=== PATIENT | male | born 1995 | race Caucasian/White ===

== ENCOUNTER 2016-04-14 18:31 | Emergency (ER) | payer BC, OTHER ==
[2016-04-14 21:00] LABS: Hematocrit 44 % (42-52); Hemoglobin 14.6 g/dl (14.0-18.0); Mean Corpuscular HGB Conc 34 g/dl (31-36); Mean Corpuscular Hemoglobin 29 pg (27-31); Mean Corpuscular Volume 86 fL (80-94); Mean Platelet Volume 9 um3 (7.4-10.4); Red Blood Count 5.06 10^6/ul (4.0-5.4); Red Cell Distribution Width 13 % (10.5-15); White Blood Count 9.3 10^3/ul (3.5-10.8)
[2016-04-14 21:17] LABS: Albumin 4.4 g/dL (3.2-5.2); BUN/Creatinine Ratio 15.6 (8-20); Calcium 9.2 mg/dL (8.6-10.3); EGFR African American 134.5 (>60); EGFR Non-African American 104.6 (>60); Globulin 2.5 g/dL (2-4); Magnesium 2.2 mg/dL (1.9-2.7); Potassium 3.8 mmol/L (3.5-5.0); Total Bilirubin 1.7 mg/dL (0.2-1.0); Total Protein 6.9 g/dL (6.4-8.9)
[2016-04-14 21:47] LABS: TSH (Thyroid Stimulating Horm) 1.54 mcIU/mL (0.34-5.60)
[2016-04-14 22:10] VITALS: BP 142/87
--- NOTE | 2016-04-14 23:11 | ED ---
Aye Infante Erika, scribed for Luciano Wen MD on 04/14/16 at 2116 . Palpitations / Dysrhythmia - HPI Summary HPI Summary: Patient is a 21-year-old male presenting to the ED with a CC of palpitations starting around 18:00 today. Pt reports that he gradually developed palpitations and SOB first, which lasted minutes. He then gradually developed chest pain, dizziness, and diaphoresis, which lasted about 30 minutes. Pt was sitting down eating food and watching TV when the symptoms began. Symptoms have since fully resolved slowly. Pt reports he took Excedrin earlier today, and states he does not normally use caffeine. He denies PMSHx. He denies FHx sudden cardiac , cardiac disease, and arrhythmias. Pt lightly smokes, and does not use illicit drugs. Pt does not have a PCP. - History of Current Complaint Chief Complaint: EDDysrhythmPalp Time Seen by Provider: 04/14/16 19:22 Hx Obtained From: Patient Onset/Duration: Gradual Onset, Lasting Minutes, Resolved Timing: Constant Severity Initially: Mild Severity Currently: None Character: Fluttering Aggravating: Nothing Associated Signs & Symptoms: Lightheadedness, Chest Pain, Shortness of Breath, Diaphoresis - Allergy/Home Medications Allergies/Adverse Reactions: Allergies Allergy/AdvReac Type Severity Reaction Status Date / Time Penicillins Allergy Hives Verified 06/14/13 16:31 PMH/Surg Hx/FS Hx/Imm Hx Endocrine/Hematology History: Denies: Hx Diabetes, Hx Thyroid Disease Cardiovascular History: Denies: Hx Hypertension Respiratory History: Denies: Hx Asthma, Hx Chronic Obstructive Pulmonary Disease (COPD) GI History: Denies: Hx Ulcer - Surgical History Surgery Procedure, Year, and Place: Appendectomy Infectious Disease History: No Infectious Disease History: Denies: Hx Hepatitis, Hx Human Immunodeficiency Virus (HIV), Traveled Outside the [place] in Last 30 Days - Family History Known Family History: Negative: Cardiac Disease Family History: Denies FHx sudden cardiac , arrhythmias - Social History Alcohol Use: None Hx Substance Use: No Substance Use Type: Reports: None Hx Tobacco Use: Yes Smoking Status (MU): Light Every Day Tobacco Smoker Review of Systems Positive: Skin Diaphoresis Positive: Palpitations, Chest Pain Positive: Shortness Of Breath Neurological: Other - Dizziness All Other Systems Reviewed And Are Negative: Yes Physical Exam - Summary Physical Exam Summary: General: Comfortable, pleasant, alert HEENT: Moist mucosa, RADHA Neck: Soft, supple, no adenopathy, no edema Heart: S1, S2, RRR. No murmurs, rubs, or gallops. Pulse of 102 at triage noted. Lungs: Clear, breathing comfortably. No wheezes or rales Abdomen: Soft, flat, non-tender Extremities: No edema, no calf tenderness Neurological: A&Ox3. CN III-XII intact Psych: Logical, coherent Triage Information Reviewed: Yes Vital Signs On Initial Exam: Initial Vitals Temp Pulse Resp BP Pulse Ox 99.2 F 102 16 152/92 99 04/14/16 18:58 04/14/16 18:58 04/14/16 18:58 04/14/16 18:58 04/14/16 18:58 Vital Signs Reviewed: Yes - Erich Coma Scale Coma Scale Total: 15 Diagnostics - Vital Signs Vital Signs Temp Pulse Resp BP Pulse Ox 04/14/16 20:00 89 16 139/84 99 04/14/16 19:30 95 19 133/81 100 04/14/16 19:25 152/86 04/14/16 19:23 83 100 04/14/16 19:20 139/88 04/14/16 18:58 99.2 F 102 16 152/92 99 - Laboratory Lab Results: Lab Results 04/14/16 04/14/16 Range/Units 20:50 20:50 WBC 9.3 (3.5-10.8) 10^3/ul RBC 5.06 (4.0-5.4) 10^6/ul Hgb 14.6 (14.0-18.0) g/dl Hct 44 (42-52) % MCV 86 (80-94) fL MCH 29 (27-31) pg MCHC 34 (31-36) g/dl RDW 13 (10.5-15) % Plt Count 217 (150-450) 10^3/ul MPV 9 (7.4-10.4) um3 Neut % (Auto) 68.0 (38-83) % Lymph % (Auto) 19.7 L (25-47) % [place] % (Auto) 10.5 H (1-9) % Eos % (Auto) 1.0 (0-6) % Baso % (Auto) 0.8 (0-2) % Absolute Neuts (auto) 6.3 (1.5-7.7) 10^3/ul Absolute Lymphs (auto) 1.8 (1.0-4.8) 10^3/ul Absolute Monos (auto) 1.0 H (0-0.8) 10^3/ul Absolute Eos (auto) 0.1 (0-0.6) 10^3/ul Absolute Basos (auto) 0.1 (0-0.2) 10^3/ul Absolute Nucleated RBC 0 10^3/ul Nucleated RBC % 0 Sodium 137 (133-145) mmol/L Potassium 3.8 (3.5-5.0) mmol/L Chloride 103 (101-111) mmol/L Carbon Dioxide 27 (22-32) mmol/L Anion Gap 7 (2-11) mmol/L BUN 14 (6-24) mg/dL Creatinine 0.90 (0.67-1.17) mg/dL Est GFR ( Amer) 134.5 (>60) Est GFR (Non-Af Amer) 104.6 (>60) BUN/Creatinine Ratio 15.6 (8-20) Glucose 101 H (70-100) mg/dL Calcium 9.2 (8.6-10.3) mg/dL Magnesium 2.2 (1.9-2.7) mg/dL Total Bilirubin 1.70 H (0.2-1.0) mg/dL AST 24 (13-39) U/L ALT 24 (7-52) U/L Alkaline Phosphatase 48 (34-104) U/L Troponin I 0.00 (<0.04) ng/mL Total Protein 6.9 (6.4-8.9) g/dL Albumin 4.4 (3.2-5.2) g/dL Globulin 2.5 (2-4) g/dL Albumin/Globulin Ratio 1.8 (1-3) TSH 1.54 (0.34-5.60) mcIU/mL Result Diagrams: 04/14/16 20:50 04/14/16 20:50 Lab Statement: Any lab studies that have been ordered have been reviewed, and results considered in the medical decision making process. - EKG 19:25 Cardiac Rate: NL - at 96 bpm EKG Rhythm: Sinus Rhythm EKG Interpretation: QTC 433. No ST changes Course/Dx - Course Assessment/Plan: He had an episode of slow onset and slow regressing palpitations and symptoms. He has no cardiac risk factors, denies significant alcohol and drugs, and no family Hx of arrhythmia. He has been here under observation for several hours and has had no complications or signs of arrhythmia on telemetry. Likely he is going to be a candidate for some type of event monitor. He does not have a PCP to arrange this, so we will refer him to Dr. Cantu for further investigation. He agrees to call 911 for any new episodes as they will help him, evaluate him, and may be able to capture what he is evaluating. - Diagnoses Provider Diagnoses: Palpitations Discharge - Discharge Plan Condition: Good Disposition: HOME Patient Education Materials: Palpitations (ED) Referrals: Jeet Cantu MD [Medical Doctor] - The documentation as recorded by the Aye ro Erika accurately reflects the service I personally performed and the decisions made by me, Luciano Wen MD.
== END 2016-04-14 22:09 | disposition home or self-care (01) ==
LOC: ED 18:31
DX: R00.2 Palpitations (principal); R07.9 Chest pain, unspecified; R06.02 Shortness of breath; R61 Generalized hyperhidrosis; R42 Dizziness and giddiness; F17.200 Nicotine dependence, unspecified, uncomplicated
CPT/HCPCS: 36415; 80053; 83735; 84443; 84484; 85025; 86703; 93005; 99282

== ENCOUNTER 2016-07-04 13:45 | Emergency (ER) | payer SELFPAY ==
[2016-07-04 13:51] VITALS: BP 139/91
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
== END 2016-07-04 14:38 | disposition home or self-care (01) ==
LOC: ED 13:45
DX: T25.022A Burn of unspecified degree of left foot, initial encounter (principal); X12.XXXA Contact with other hot fluids, initial encounter; Y93.89 Activity, other specified; Y92.9 Unspecified place or not applicable; Y99.9 Unspecified external cause status; F17.210 Nicotine dependence, cigarettes, uncomplicated
CPT/HCPCS: 99281